=== PATIENT | male | born 1970 | race African-American/Black ===

== ENCOUNTER 2021-10-26 21:27 | Emergency (ER) | payer OTHER ==
[~2021-10-26] VITALS: Ht 170.2 cm; Wt 74.8 kg
[2021-10-26] MEDS ORDERED: IPRATROPIUM NEB FS 0.5 MG/2.5 ML AMPUL.NEB ONE (21:42)
[2021-10-26] MEDS ORDERED: ALBUTEROL FS 2.5 MG/3 ML VIAL.NEB ONE (21:42)
--- NOTE | 2021-10-26 21:49 | NUR ---
PT AAOX4. C/O ASTHMA ATTACK. PLACED IN BED 18 ON MONITOR AND PULSE OX.
[2021-10-26] MEDS ORDERED: predniSONE 20 MG TABLET ONE (21:50)
[2021-10-26] MEDS ORDERED: IPRATROPIUM NEB FS 0.5 MG/2.5 ML AMPUL.NEB NEB ONE (22:00)
[2021-10-26] MEDS ORDERED: predniSONE 20 MG TABLET PO ONE (22:00)
[2021-10-26] MEDS ORDERED: ALBUTEROL FS 2.5 MG/3 ML VIAL.NEB NEB ONE (22:00)
[2021-10-26] MEDS ORDERED: PRED20TA PO (22:22)
--- NOTE | 2021-10-27 | NUR ---
Patient discharged to home in stable condition. Written and verbal after care instructions given. Patient verbalizes understanding of instruction. PT Ambulated out of ED. VSS. RR even and unlboared.
[2021-10-27 00:30] VITALS: BP 122/75
== END 2021-10-27 00:31 | disposition home or self-care (01) ==
LOC: ER 21:34
DX: J45.901 Unspecified asthma with (acute) exacerbation (principal); Z79.899 Other long term (current) drug therapy; Z90.89 Acquired absence of other organs
CPT/HCPCS: 93005; 94640; 99283; A4364; J7512

== ENCOUNTER 2023-02-06 22:37 | Emergency (ER) | payer OTHER ==
[~2023-02-06] VITALS: Ht 170.2 cm; Wt 72.6 kg
[~2023-02-06 22:37] MED LIST: PRED20TA PO
[2023-02-06 23:18] VITALS: BP 145/93
--- NOTE | 2023-02-07 00:20 | NUR ---
Patient discharged to home in stable condition. Written and verbal after care instructions given. Patient verbalizes understanding of instruction.
== END 2023-02-07 00:21 | disposition home or self-care (01) ==
LOC: ER 22:39
DX: I10 Essential (primary) hypertension (principal); J45.909 Unspecified asthma, uncomplicated; Z79.899 Other long term (current) drug therapy

== ENCOUNTER 2023-04-21 02:56 | Emergency (ER) | payer OTHER ==
[~2023-04-21] VITALS: Ht 170.2 cm; Wt 74.8 kg
--- NOTE | 2023-04-21 03:22 | NUR ---
BIBSELF FOR DRY COUGH X1 WEEK. HX ASTHMA
--- NOTE | 2023-04-21 03:33 | NUR ---
X-RAY AT BEDSIDE
[2023-04-21] MEDS ORDERED: GUAI600T53 PO (05:05)
[2023-04-21] MEDS ORDERED: AMOX-430 PO (05:05)
[2023-04-21 05:26] VITALS: BP 109/69; TEMP 99.3
--- NOTE | 2023-04-21 05:26 | NUR ---
Patient discharged to home in stable condition. Written and verbal after care instructions given. Patient verbalizes understanding of instruction.
[2023-04-21] MEDS ORDERED: GUAIFENESIN LA 600 MG TABLET.SA PO ONE (05:30)
[2023-04-21] MEDS ORDERED: dexaMETHasone SOD PHOSPHATE 10 MG/ML VIAL IM ONE (05:30)
[2023-04-21] MEDS ORDERED: AMOX/CLAVULANATE 875 MG TABLET PO ONE (05:30)
== END 2023-04-21 05:26 | disposition home or self-care (01) ==
LOC: ER 03:00
DX: J32.9 Chronic sinusitis, unspecified (principal); R09.89 Other specified symptoms and signs involving the circulatory and respiratory systems; I10 Essential (primary) hypertension; J45.909 Unspecified asthma, uncomplicated
CPT/HCPCS: 71045-TC